=== PATIENT | female | born 1955 | race Caucasian/White ===

== ENCOUNTER 2019-04-22 14:32 | Outpatient (CLI) | payer BC, MEDICARE ==
[2019-04-22] MEDS ORDERED: Cyanocobalamin (Vitamin B12) 1,000 MCG/ML SDV IM ONE (14:35)
[2019-04-22 15:28] VITALS: BP 119/75; PULSE 69
== END 2019-04-22 14:40 | disposition home or self-care (01) ==
LOC: LB.ACU 14:32
PROVIDERS: ATTEND Family Medicine
DX: E53.8 Deficiency of other specified B group vitamins (principal)
CPT/HCPCS: 96372; J3420

== ENCOUNTER → 2019-06-02 | Outpatient (CLI) | payer BC, MEDICARE | LOC: LB.CLINIC 14:37 | PROVIDERS: ATTEND Family Medicine | DX: K90.0 Celiac disease (principal); K76.6 Portal hypertension; E03.9 Hypothyroidism, unspecified; D64.9 Anemia, unspecified | CPT/HCPCS: 36415; 80053; 84443; 85025 ==

== ENCOUNTER 2022-06-29 19:51 | Emergency (ER) | payer OTHER ==
[2022-06-29] MEDS: Sodium Chloride 0.9% 1,000 ML IV ONE (20:45)
[2022-06-29] MEDS: Pantoprazole 40 MG Vial IVPUSH ONE (21:35)
[2022-06-29] MEDS: Piperacillin/Tazobactam 3.375 GM in Sodium Chloride 0.9% 100 ML IV ONE (22:12)
[2022-06-29] MEDS ORDERED: Propranolol 20 MG Tab ONE (22:30)
[2022-06-30 00:39] VITALS: BP 136/77; PULSE 91
== END 2022-06-29 23:00 | disposition home or self-care (01) ==
LOC: LB.ED 19:51
DX: K92.0 Hematemesis (principal); Z88.8 Allergy status to other drugs, medicaments and biological substances; Z88.5 Allergy status to narcotic agent; Z79.899 Other long term (current) drug therapy
CPT/HCPCS: 36415; 71250; 74176; 80053; 83605; 85025; 85610; 96361; 96365; 96375; 99284-25; A9270-GY; C9113; J2543; J7030

== ENCOUNTER 2022-11-24 16:44 | Emergency (ER) | payer OTHER ==
[2022-11-24] MEDS ORDERED: Ondansetron 4 MG Tab.DIS PO ONE (17:18)
[2022-11-24] MEDS ORDERED: Sodium Chloride 0.9% 10 ML Syringe FLUSH PRN (17:22)
[2022-11-24 17:35] LABS: BASOPHILS ABSOLUTE AUTO 0.01 K/uL (0.02-0.10); BASOPHILS PERCENT AUTO 0.1 % (0.0-0.5); EOSINOPHILS ABSOLUTE AUTO 0.03 K/uL (0.04-0.40); EOSINOPHILS PERCENT AUTO 0.4 % (1.0-5.0); HEMATOCRIT 25.5 % (37.0-47.0); HEMOGLOBIN 8.1 g/dL (11.5-16.5); LYMPHOCYTES ABSOLUTE AUTO 1.68 K/uL (1.50-4.00); LYMPHOCYTES PERCENT AUTO 23.3 % (20.0-40.0); MEAN CORPUSCULAR HEMOGLOBIN 24.7 pg (27.0-32.0); MEAN CORPUSCULAR HGB CONC 31.8 g/dL (31.0-35.0); MEAN CORPUSCULAR VOLUME 78 fL (76-96); MEAN PLATELET VOLUME 11.2 fL (6.0-10.0); MONOCYTES ABSOLUTE AUTO 0.87 K/uL (0.20-0.80); MONOCYTES PERCENT AUTO 12.1 % (3.0-10.0); NEUTROPHILS ABSOLUTE AUTO 4.61 K/uL (2.00-7.50); NEUTROPHILS PERCENT AUTO 64.1 % (45.0-70.0); PLATELET COUNT,PLT 220 K/uL (150-500); RED BLOOD CELL COUNT 3.28 M/uL (3.80-5.80); WHITE BLOOD CELL COUNT,WBC 7.2 K/uL (4.0-11.0)
[2022-11-24] MEDS ORDERED: Ondansetron 4 MG/2 ML SDV IVPUSH ONE (17:40)
[2022-11-24 17:44] LABS: ALANINE AMINOTRANSFERASE,ALT 32 U/L (12-78); ALBUMIN 2.8 g/dL (3.4-5.0); ALKALINE PHOSPHATASE 130 U/L (46-116); ANION GAP 15.2 mmol/L (5.0-15.0); ASPARTATE AMNIOTRANSFERASE,AST 44 U/L (15-37); BILIRUBIN TOTAL 0.8 mg/dL (0.0-1.0); BLOOD UREA NITROGEN,BUN 28 mg/dL (8-26); BUN/CREATININE RATIO 37.8 (6-25); CALCIUM 7.9 mg/dL (8.5-10.1); CARBON DIOXIDE,CO2 23.7 mmol/L (21.0-32.0); CHLORIDE,CL 109 mmol/L (98-107); CREATININE 0.74 mg/dL (0.55-1.02); ESTIMATED GFR 88 mL/min (>60); GLUCOSE RANDOM 153 mg/dL (74-100); POTASSIUM,K 3.9 mmol/L (3.5-5.1); PROTEIN TOTAL,TP 5.5 g/dL (6.4-8.2); SODIUM,NA 144 mmol/L (136-145)
[2022-11-24 17:47] LABS: LACTIC ACID 3.3 mmol/L (0.4-2.0)
[2022-11-24] MEDS ORDERED: Lactated Ringers 1,000 ML IV SCH (18:15)
[2022-11-24] MEDS ORDERED: Octreotide 100 MCG/ML SDV IVPUSH ONE (18:29)
[2022-11-24] MEDS ORDERED: Pantoprazole 40 MG Vial IVPUSH ONE (18:31)
[2022-11-24] MEDS ORDERED: cefTRIAXone 1 GM Vial IVPUSH STA (18:31)
[2022-11-24 18:34] LABS: INR 1.4 (1.0-3.5)
[2022-11-24 18:37] LABS: PROTHROMBIN TIME 14.4 sec (9.0-11.5)
[2022-11-24] MEDS ORDERED: Octreotide 100 MCG/ML SDV IV SCH (18:45)
[2022-11-24] MEDS ORDERED: Sodium Chloride 0.9% 1,000 ML IV SCH (18:45)
[2022-11-24 20:37] VITALS: BP 111/65; PULSE 93
== END 2022-11-24 20:10 ==
LOC: LB.ED 16:44
DX: K92.0 Hematemesis (principal); I85.01 Esophageal varices with bleeding; E72.20 Disorder of urea cycle metabolism, unspecified; Z88.8 Allergy status to other drugs, medicaments and biological substances; Z79.899 Other long term (current) drug therapy; Z90.49 Acquired absence of other specified parts of digestive tract
CPT/HCPCS: 36415; 80053; 82140; 83605; 83735; 84484; 85025; 85610; 93005; 96374; 96375; 99285-25; A0425; A0429; C9113; J0696; J2354-JA; J2405; J7030; J7120; Q0162

== ENCOUNTER 2023-06-28 18:16 | Emergency (ER) | payer OTHER ==
[2023-06-28] MEDS ORDERED: Sodium Chloride 0.9% 10 ML Syringe FLUSH PRN (19:05)
[2023-06-28] MEDS ORDERED: Lactated Ringers 1,000 ML IV SCH ×2 (19:15→20:15)
[2023-06-28 19:21] LABS: HEMATOCRIT 33.1 % (37.0-47.0); HEMOGLOBIN 10.6 g/dL (11.5-16.5); MEAN CORPUSCULAR HEMOGLOBIN 26.1 pg (27.0-32.0); MEAN PLATELET VOLUME 11.5 fL (6.0-10.0); RED BLOOD CELL COUNT 4.06 M/uL (3.80-5.80); RED CELL DISTRIBUTION WIDTH 20.7 % (11.0-16.0); WHITE BLOOD CELL COUNT,WBC 4.6 K/uL (4.0-11.0)
[2023-06-28 19:38] LABS: ALBUMIN 3.1 g/dL (3.4-5.0); ANION GAP 13.4 mmol/L (5.0-15.0); BILIRUBIN TOTAL 0.6 mg/dL (0.0-1.0); BUN/CREATININE RATIO 27.4 (6-25); CALCIUM 8.5 mg/dL (8.5-10.1); CARBON DIOXIDE,CO2 22.9 mmol/L (21.0-32.0); CREATININE 0.62 mg/dL (0.55-1.02); EST CRCL DRUG DOSING (CG) 67.73 mL/min; POTASSIUM,K 3.3 mmol/L (3.5-5.1); PROTEIN TOTAL,TP 6.3 g/dL (6.4-8.2)
[2023-06-29 10:12] VITALS: BP 137/77; PULSE 74
== END 2023-06-29 09:50 | disposition home or self-care (01) ==
LOC: LB.ED 18:16
DX: F10.129 Alcohol abuse with intoxication, unspecified (principal); Z88.8 Allergy status to other drugs, medicaments and biological substances; Z88.5 Allergy status to narcotic agent; Z79.899 Other long term (current) drug therapy
CPT/HCPCS: 36415; 70450; 80053; 80307; 82140; 85027; 99284; A0425; A0429; J7120

== ENCOUNTER 2023-12-08 10:55 | Emergency (ER) | payer SELFPAY ==
[2023-12-08 11:29] VITALS: BP 130/73
[2023-12-08] MEDS: Bacitracin Oint 1 GM U/D Packet TOP ONE (11:50)
[2023-12-08] MEDS: Lidocaine 1% with EPINEPHrine 1:100,000 20 ML MDV INJECT ONE (11:55)
[2023-12-08] MEDS: Lidocaine 1% with EPINEPHrine 1:100,000 50 ML MDV INFILT ONE (12:03)
[2023-12-08 14:19] VITALS: PULSE 65
== END 2023-12-08 12:20 | disposition home or self-care (01) ==
LOC: LB.ED 10:55
DX: S61.012A Laceration without foreign body of left thumb without damage to nail, initial encounter (principal); Z79.899 Other long term (current) drug therapy; Z88.1 Allergy status to other antibiotic agents; Z88.8 Allergy status to other drugs, medicaments and biological substances; W26.8XXA Contact with other sharp object(s), not elsewhere classified, initial encounter
CPT/HCPCS: 12001; 99282

== ENCOUNTER 2024-10-21 22:58 | Emergency (ER) | payer MEDICARE ==
[2024-10-21] MEDS: Sodium Chloride 0.9% 10 ML Syringe FLUSH PRN (23:10)
[2024-10-21] MEDS: Sodium Chloride 0.9% 1,000 ML IV ONE (23:14)
[2024-10-21 23:45] LABS: BASOPHILS ABSOLUTE AUTO 0.02 K/uL (0.02-0.10); BASOPHILS PERCENT AUTO 0.5 % (0.0-0.5); EOSINOPHILS PERCENT AUTO 4.9 % (1.0-5.0); HEMATOCRIT 37.6 % (37.0-47.0); HEMOGLOBIN 12.8 g/dL (11.5-16.5); LYMPHOCYTES ABSOLUTE AUTO 1.18 K/uL (1.50-4.00); LYMPHOCYTES PERCENT AUTO 28.8 % (20.0-40.0); MEAN CORPUSCULAR HEMOGLOBIN 32.2 pg (27.0-32.0); MEAN CORPUSCULAR VOLUME 95 fL (76-96); MEAN PLATELET VOLUME 11.7 fL (6.0-10.0); MONOCYTES ABSOLUTE AUTO 0.65 K/uL (0.20-0.80); MONOCYTES PERCENT AUTO 15.9 % (3.0-10.0); NEUTROPHILS ABSOLUTE AUTO 2.05 K/uL (2.00-7.50); NEUTROPHILS PERCENT AUTO 49.9 % (45.0-70.0); PLATELET COUNT,PLT 137 K/uL (150-500); RED BLOOD CELL COUNT 3.98 M/uL (3.80-5.80); RED CELL DISTRIBUTION WIDTH 14.3 % (11.0-16.0); WHITE BLOOD CELL COUNT,WBC 4.1 K/uL (4.0-11.0)
[2024-10-22 00:04] LABS: A/G RATIO 0.9 (0.8-2.0); ALANINE AMINOTRANSFERASE,ALT 34 U/L (12-78); ALBUMIN 3.1 g/dL (3.4-5.0); ALKALINE PHOSPHATASE 170 U/L (46-116); ANION GAP 15.5 mmol/L (5.0-15.0); ASPARTATE AMNIOTRANSFERASE,AST 62 U/L (15-37); BILIRUBIN TOTAL 0.9 mg/dL (0.0-1.0); BLOOD UREA NITROGEN,BUN 12 mg/dL (8-26); BUN/CREATININE RATIO 17.9 (6-25); CALCIUM 8.2 mg/dL (8.5-10.1); CARBON DIOXIDE,CO2 25.1 mmol/L (21.0-32.0); CHLORIDE,CL 105 mmol/L (98-107); CREATININE 0.67 mg/dL (0.55-1.02); ESTIMATED GFR 93 mL/min (>60); GLUCOSE RANDOM 110 mg/dL (74-100); MAGNESIUM 1.6 mg/dL (1.8-2.4); POTASSIUM,K 3.6 mmol/L (3.5-5.1); PROTEIN TOTAL,TP 6.6 g/dL (6.4-8.2); SODIUM,NA 142 mmol/L (136-145)
[2024-10-22 00:17] LABS: AMPHETAMINES SCREEN, URINE NEGATIVE (NEGATIVE); APPEARANCE,URINE CLEAR (CLEAR); BARBITURATE SCREEN,URINE NEGATIVE (NEGATIVE); BENZODIAZEPINES SCREEN,URINE NEGATIVE (NEGATIVE); COLOR,URINE YELLOW; METHADONE SCREEN, URINE NEGATIVE (NEGATIVE); METHAMPHETAMINES SCREEN, URINE NEGATIVE (NEGATIVE); OXYCODONE SCREEN,URINE NEGATIVE (NEGATIVE); THC SCREEN,URINE 50 NG/ML NEGATIVE (NEGATIVE)
[2024-10-22 00:18] LABS: BILIRUBIN,URINE NEGATIVE (NEGATIVE); GLUCOSE,URINE NEGATIVE (NEGATIVE); KETONES,URINE NEGATIVE (NEGATIVE); LEUKOCYTE ESTERASE,URINE TRACE (NEGATIVE); NITRITE,URINE NEGATIVE (NEGATIVE); OCCULT BLOOD,URINE NEGATIVE (NEGATIVE); PROTEIN,URINE NEGATIVE (NEGATIVE); RBC,URINE 0-5 /HPF; UROBILINOGEN,URINE 0.2 E.U./dL (0.2-1.0)
[2024-10-22] MEDS: Sodium Chloride 0.9% 1,000 ML IV SCH (01:20)
[2024-10-22 07:17] VITALS: BP 124/62; PULSE 64
== END 2024-10-22 08:30 | disposition home or self-care (01) ==
LOC: LB.ED 22:58
DX: F10.120 Alcohol abuse with intoxication, uncomplicated (principal); Z88.8 Allergy status to other drugs, medicaments and biological substances; Z79.890 Hormone replacement therapy; Z79.899 Other long term (current) drug therapy; Y90.9 Presence of alcohol in blood, level not specified
CPT/HCPCS: 36415; 80053; 80307; 81001; 83735; 85025; 96360; 96361; 99284; 99284-25; A0425; A0428; J7030

== ENCOUNTER 2024-11-15 14:44 | Emergency (ER) | payer MEDICARE ==
[2024-11-15 15:39] LABS: BASOPHILS ABSOLUTE AUTO 0.02 K/uL (0.02-0.10); BASOPHILS PERCENT AUTO 0.4 % (0.0-0.5); HEMATOCRIT 37.7 % (37.0-47.0); HEMOGLOBIN 13.4 g/dL (11.5-16.5); LYMPHOCYTES ABSOLUTE AUTO 0.91 K/uL (1.50-4.00); LYMPHOCYTES PERCENT AUTO 18.1 % (20.0-40.0); MEAN CORPUSCULAR HEMOGLOBIN 33.2 pg (27.0-32.0); MEAN CORPUSCULAR HGB CONC 35.5 g/dL (31.0-35.0); MEAN CORPUSCULAR VOLUME 93 fL (76-96); MONOCYTES ABSOLUTE AUTO 0.85 K/uL (0.20-0.80); MONOCYTES PERCENT AUTO 16.9 % (3.0-10.0); NEUTROPHILS ABSOLUTE AUTO 3.05 K/uL (2.00-7.50); NEUTROPHILS PERCENT AUTO 60.6 % (45.0-70.0); PLATELET COUNT,PLT 138 K/uL (150-500); RED BLOOD CELL COUNT 4.04 M/uL (3.80-5.80); RED CELL DISTRIBUTION WIDTH 14.6 % (11.0-16.0)
[2024-11-15 15:57] LABS: AMPHETAMINES SCREEN, URINE NEGATIVE (NEGATIVE); BARBITURATE SCREEN,URINE NEGATIVE (NEGATIVE); BENZODIAZEPINES SCREEN,URINE POSITIVE (NEGATIVE); METHADONE SCREEN, URINE POSITIVE (NEGATIVE); METHAMPHETAMINES SCREEN, URINE NEGATIVE (NEGATIVE); OXYCODONE SCREEN,URINE NEGATIVE (NEGATIVE); THC SCREEN,URINE 50 NG/ML NEGATIVE (NEGATIVE)
[2024-11-15] MEDS: Sodium Chloride 0.9% 1,000 ML IV SCH (16:11)
[2024-11-15 16:12] LABS: ALBUMIN 3.5 g/dL (3.4-5.0); ANION GAP 14.6 mmol/L (5.0-15.0); BUN/CREATININE RATIO 26.7 (6-25); CARBON DIOXIDE,CO2 24.2 mmol/L (21.0-32.0); CREATININE 0.75 mg/dL (0.55-1.02); EST CRCL DRUG DOSING (CG) 54.41 mL/min; POTASSIUM,K 3.8 mmol/L (3.5-5.1)
[2024-11-15 16:14] LABS: INR 1.3 (1.0-3.5); PTT,PARTIAL THROMBOPLSTIN TIME 27.1 SECONDS (24.4-33.2)
[2024-11-15 16:18] LABS: PROTHROMBIN TIME 13.7 sec (9.0-11.5)
[2024-11-15 16:42] LABS: APPEARANCE,URINE CLOUDY (CLEAR); COLOR,URINE OTHER; PH,URINE 6.5 (5.0-8.0); PROTEIN,URINE 30 mg/dL (NEGATIVE)
[2024-11-15 16:43] LABS: BILIRUBIN,URINE NEGATIVE (NEGATIVE); CALCIUM OXALATE CRYSTALS,URINE MANY /HPF; GLUCOSE,URINE NEGATIVE (NEGATIVE); KETONES,URINE TRACE mg/dL (NEGATIVE); LEUKOCYTE ESTERASE,URINE TRACE (NEGATIVE); NITRITE,URINE NEGATIVE (NEGATIVE); OCCULT BLOOD,URINE LARGE (NEGATIVE); RBC,URINE >100 /HPF; SQUAMOUS EPITHELIAL CELLS,UR OCCASIONAL /HPF
[2024-11-15 19:06] VITALS: PULSE 68
[2024-11-15 19:42] VITALS: BP 144/74
== END 2024-11-15 20:02 ==
LOC: LB.ED 14:44
DX: K92.0 Hematemesis (principal); Z88.8 Allergy status to other drugs, medicaments and biological substances; Z79.890 Hormone replacement therapy; Z90.49 Acquired absence of other specified parts of digestive tract
CPT/HCPCS: 12002; 36415; 70450; 74176; 80053; 80307; 81001; 82140; 85018; 85025; 85610; 85730; 93005; 96360; 96361; 99285; J7030; A0425; A0428

== ENCOUNTER 2025-01-21 13:37 | Emergency (ER) | payer BC, MEDICARE, OTHER ==
[2025-01-21] MEDS: Silver Nitrate Applicator Each TOP ONE (13:53)
[2025-01-21 15:51] VITALS: BP 138/78; PULSE 77
== END 2025-01-21 14:25 | disposition home or self-care (01) ==
LOC: LB.ED 13:37
DX: S01.01XA Laceration without foreign body of scalp, initial encounter (principal); Z88.8 Allergy status to other drugs, medicaments and biological substances; Z79.890 Hormone replacement therapy; Z79.899 Other long term (current) drug therapy; W01.198A Fall on same level from slipping, tripping and stumbling with subsequent striking against other object, initial encounter; Y93.89 Activity, other specified
CPT/HCPCS: 12001; 99282; J2003